=== PATIENT | female | born 1965 | race Caucasian/White ===

== ENCOUNTER 2017-05-22 08:08 | Day surgery (SDC) | payer SELFPAY, OTHER ==
[~2017-05-22 08:08] MED LIST: Bupivacaine 0.25%/EPINEPHrine 1:200,000 10 ML SDV ONE
[2017-05-22] MEDS ORDERED: ceFAZolin 2 GM in Premix Bag 1 BAG IV ONE (08:31)
[2017-05-22] MEDS ORDERED: Bupivacaine 0.25%/EPINEPHrine 1:200,000 10 ML SDV INJECT ONE (08:31)
[2017-05-22] MEDS ORDERED: Bupivacaine Liposome 1.3% 20 ML SDV INFILT ONE (08:31)
[2017-05-22] MEDS ORDERED: Acetaminophen/HYDROcodone 325-5 MG Tab PO PRN (08:31)
[2017-05-22] MEDS ORDERED: Ondansetron 4 MG/2 ML SDV IVPUSH PRN (08:34)
[2017-05-22] MEDS ORDERED: Ondansetron 4 MG Tab.DIS PO PRN (08:34)
[2017-05-22] MEDS ORDERED: diphenhydrAMINE 25 MG Cap PO PRN (08:34)
[2017-05-22] MEDS: Lactated Ringers 1,000 ML IV SCH ×3 (08:50→23:11)
[2017-05-22] MEDS ORDERED: Propofol 200 MG/20 ML SDV ONE (08:59)
--- NOTE | 2017-05-22 09:02 | PCM.PREANE ---
Preanesthetic Assessment - Anesthesia/Transfusion/Family Hx Anesthesia History: Prior Anesthesia Without Reaction Family History of Anesthesia Reaction: No Transfusion History: No Prior Transfusion(s) Intubation History: Unknown - Review of Systems General: No Symptoms Pulmonary: No Symptoms Cardiovascular: No Symptoms Gastrointestinal: No Symptoms Neurological: No Symptoms Other: Reports: None - Physical Assessment Height: 1.63 m Weight: 80.739 kg ASA Class: 2 Mental Status: Alert & Oriented x3 Airway Class: Mallampati = 2 Dentition: Reports: Normal Dentition Thyro-Mental Finger Breadths: 2 Mouth Opening Finger Breadths: 3 ROM/Head Extension: Full Lungs: Clear to Auscultation, Normal Respiratory Effort Cardiovascular: Regular Rate, Regular Rhythm - Lab Values: Laboratory Last Values Urine HCG, Qual NEGATIVE (NEGATIVE) 05/22/17 08:09 - Allergies Allergies/Adverse Reactions: Allergies Allergy/AdvReac Type Severity Reaction Status Date / Time No Known Allergies Allergy Verified 05/15/17 13:57 - Blood Blood Available: No - Anesthesia Plan Pre-Op Medication Ordered: None - Acknowledgements Anesthesia Type Planned: General Anesthesia Pt an Appropriate Candidate for the Planned Anesthesia: Yes Alternatives and Risks of Anesthesia Discussed w Pt/Guardian: Yes Pt/Guardian Understands and Agrees with Anesthesia Plan: Yes PreAnesthesia Questionnaire Other HEENT History: wears glasses for driving Gastrointestinal History: Reports: Diverticulosis Genitourinary History: Reports: None 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 [No Known Home Meds] 05/15/17 [History] - CURRENT (IN HOUSE) MEDS Current Meds: Current Medications Hydrocodone Bitart/Acetaminophen ([place] 325-5 Mg) 1 tab PO Q4H PRN PRN Reason: Pain Diphenhydramine HCl (Benadryl) 25 mg PO Q6H PRN PRN Reason: Itching Lactated Ringer's (Ringers, Lactated) 1,000 mls @ 125 mls/hr IV ASDIRECTED KATHY Last Admin: 05/22/17 08:50 Dose: 125 mls/hr Ondansetron HCl (Zofran Odt) 4 mg PO Q6H PRN PRN Reason: Nausea/Vomiting Ondansetron HCl (Zofran) 4 mg IVPUSH Q6H PRN PRN Reason: Nausea/Vomiting Discontinued Medications Bupivacaine HCl/Epinephrine Bitart (Marcaine 0.25%/Epinephrine 1:200,000) 20 ml INJECT ONETIME ONE Stop: 05/22/17 08:32 Bupivacaine HCl/Epinephrine Bitart (Marcaine 0.25%/Epinephrine 1:200,000) Confirm Administered Dose 40 ml .ROUTE .STK-MED ONE Stop: 05/22/17 07:12 Bupivacaine Liposome (Exparel) 20 ml INFILT ONETIME ONE Stop: 05/22/17 08:32 Cefazolin Sodium/Dextrose 2 gm (/ Premix) 50 mls @ 100 mls/hr IV ONETIME ONE Stop: 05/22/17 09:00
[2017-05-22] MEDS ORDERED: fentaNYL 100 MCG/2 ML SDV ONE (09:04)
[2017-05-22] MEDS ORDERED: HYDROmorphone 2 MG/ML Syringe ONE (09:04)
[2017-05-22] MEDS ORDERED: Midazolam 1 MG/ML 2 ML SDV ONE (09:04)
[2017-05-22] MEDS ORDERED: Ondansetron 4 MG/2 ML SDV ONE (09:06)
[2017-05-22] MEDS ORDERED: Rocuronium 10 MG/ML 10 ML Syringe ONE (09:06)
[2017-05-22] MEDS ORDERED: Bupivacaine 0.25%/EPINEPHrine 1:200,000 10 ML SDV ONE (10:32)
[2017-05-22] MEDS ORDERED: Octyl 2-Cyanoacrylate 1 Tube ONE (10:32)
[2017-05-22] MEDS ORDERED: Sugammadex Sodium 200 MG/2 ML VIAL ONE (13:07)
--- NOTE | 2017-05-22 14:08 | PCM.OPNOTE ---
- General Post-Op/Procedure Note Date of Surgery/Procedure: 05/22/17 Operative Procedure(s): abdominoplasty Pre Op Diagnosis: desire for improved abdominal contour Post-Op Diagnosis: Same Anesthesia Technique: General ET Tube, Local Primary Surgeon: Joanie Nayak Anesthesia Provider: Jourdan Frey Board Certified Music Therapist: Elizabeth Ferrera Drain/Tube Comments:: 2 10 TYRON drains lateral Complications: None Condition: Good
[2017-05-22] MEDS ORDERED: fentaNYL 100 MCG/2 ML SDV IVPUSH PRN (14:19)
[2017-05-22] MEDS ORDERED: Naloxone 0.4 MG/ML Syringe IVPUSH PRN (14:20)
--- NOTE | 2017-05-22 14:57 | PCM.POSTAN ---
POST ANESTHESIA ASSESSMENT - MENTAL STATUS Mental Status: Alert, Oriented - RESPIRATORY Respiratory Status: Respiratory Rate WNL, Airway Patent, O2 Saturation Stable - CARDIOVASCULAR CV Status: Pulse Rate WNL, Blood Pressure Stable - GASTROINTESTINAL GI Status: No Symptoms - PAIN Pain Score: 5 - POST OP HYDRATION Hydration Status: Adequate & Stable - OBSERVATIONS Free Text/Narrative:: no anesthesia problems
[2017-05-22] MEDS: Cephalexin 500 MG Cap PO SCH ×4 (17:29→23:10)
--- NOTE | 2017-05-22 17:56 | PCM.SN ---
- Free Text/Narrative Note: Post op check - doing well and will decide on discharge if she is feeling well later. Instructions on chart in case and patient was given scripts as well. If discharged she will see me tomorrow in clinic. If stays, I will see in am.
[2017-05-23] MEDS ORDERED: Ibuprofen 800 MG Tab PO PRN (05:38)
[2017-05-23] MEDS: Cephalexin 500 MG Cap PO SCH (05:58)
[2017-05-23 08:21] VITALS: BP 113/63
--- NOTE | 2017-05-24 13:23 | PCM.SN ---
- Free Text/Narrative Note: The patient was evaluated post op day 1 and was tolerating diet and feeling well. Discharged home without additional intervention. Drains, antibiotics, pain medication and nausea medication if needed. Binder at all times. Follow up Saturday.
--- NOTE | 2017-05-30 19:35 | OR ---
SURGEON: ERICA FRENCH MD DATE OF PROCEDURE: 05/22/2017 PREOPERATIVE DIAGNOSIS: Desire for improved contour of her abdomen. POSTOPERATIVE DIAGNOSIS: Desire for improved contour of her abdomen. PROCEDURE: Abdominoplasty. GENERAL HARDWARE SALESPERSON: EDWIN Chan. ANESTHESIA: General ET tube with local anesthesia. DRAINS: Two size 10 TYRON drains at the lateral aspects of the incisions. INDICATION: Ms. Borrero is a 52-year-old female, seen today in evaluation for abdominoplasty. She is here for cosmetic improvement of her abdomen, and risks and benefits of the procedure were discussed including but not limited to, bleeding, infection, damage to underlying or overlying structures, possible need for future interventions, and possible scarring. PROCEDURE IN DETAIL: After informed consent was obtained and placed on the chart, the patient was brought to the operating theater and laid in supine position. After general ET tube and local anesthesia was obtained, the area was prepped and draped, and a time-out was completed to confirm side and site. Once adequately prepped and draped, the attention was then paid to the inferior aspect of the incision. The markings were made in the preanesthesia area to ensure removal of the entire overhanging. The inferior incision was made and dissection was carried down to the abdominal wall using first 15 blade and then Bovie electrocautery. The skin flap was then elevated up to the xiphoid process while taking care to isolate the umbilicus during this. The umbilicus was isolated from the superior skin flap and dissection was completed. Meticulous hemostasis was obtained of the abdominal wall and the flap, and the area was copiously irrigated. Once adequately irrigated, the patient was sat up to 30 degrees and the skin was redraped. The superior incision line was adjusted slightly for the excess and the excess was then trimmed. Hemostasis was then again obtained. Attention was then paid to abdominal plication and the midline rectus diastasis was repaired using 0 Ethibond sutures in a [id number] fashion for the total length of the abdominal wall. Once this was completed, 2-0 PDS sutures were then used in a running fashion for the abdominal plication from the superior aspect of the lateral rectus to the lower abdomen. Once the plication sutures were completed, the skin flaps were reapproximated and stapled in place. Attention was then paid to use of the 2-0 PDS barbed suture in a running fashion for closure of the fascial layer. Once this was completed, attention was then paid to running closure receiving 3-0 Monocryl stitches for the deep dermal in an interrupted fashion and a running 4-0 subcuticular for the skin. The two size 10 TYRON drains were placed and brought out laterally and sutured in place using 3-0 Prolene sutures. Once this was completed, attention was then paid to isolation of the umbilicus and a small V-shaped incision was used 18 cm from the pubic symphysis. Attention was first paid to the V incision and the dissection through the skin flaps superiorly in order to locate the umbilical stump attached to the abdominal wall. This was brought through and sutured in place with deep 4-0 Monocryl stitches and Dermabond for the skin. She tolerated this well and all counts and needles were correct at the end of the case. Of note, a small sac hernia was noted at the superior aspect of the umbilicus and this was trimmed and repaired with a single stitch during the abdominal plication. The wounds were dressed with lateral Xeroform for the drains, Steri-Strips for the abdomen, and a Tegaderm ordered for the belly button. Fluffs and tape were used over the lower aspect of the incision. The patient was then placement in a Soco compression garment. She tolerated this well and all counts and needles were correct at the end the case. FOLLOWUP INSTRUCTIONS: The patient will be maintained in the hospital overnight and then transition to p.o. pain control for discharge tomorrow. HERANCHO / SAVI /[id number]
== END 2017-05-23 09:50 | disposition home or self-care (01) ==
LOC: MW.SDS 08:08 → MW.MS 13:55 → MW.SDS 05-23 09:50
PROVIDERS: ATTEND Plastic Surgery
DX: Z41.1 Encounter for cosmetic surgery (principal); M18.9 Osteoarthritis of first carpometacarpal joint, unspecified; M79.7 Fibromyalgia; E66.9 Obesity, unspecified; Z98.890 Other specified postprocedural states; Z68.30 Body mass index [BMI] 30.0-30.9, adult
CPT/HCPCS: 15830; 15847; 81025; 88300; A9270; C9399; J1170; J2250; J2405; J3010; J7120; 00802; J2704